=== PATIENT | male | born 1985 | race Caucasian/White ===

== ENCOUNTER 2021-01-23 15:04 | Emergency (ER) | payer BC, SELFPAY ==
--- NOTE | ~2021-01-23 | XR_ITS ---
EXAMINATION: XR finger 1st LT min 2V EXAM DATE: 01/23/2021 15:38 INDICATION: Smashed finger, subsequent pain. Initial encounter. TECHNIQUE: Left 1st finger frontal, lateral and oblique projections obtained and reviewed. There i s no prior study for comparison. FINDINGS: There is tiny acute fracture at the tuft of the left 1st phalanx, overlying laceration shireen cating it could be open posttraumatic fracture. Clinical correlation. No other suspicious findings. IMPRESSION: Left 1st tuft fracture with overlying laceration, possibly open. Reviewed, dictated and finalized at location A.
[2021-01-23 15:10] VITALS: BP 161/92; PULSE 85; RESP 16; TEMP 37.1; O2SAT 98
[2021-01-23] MEDS: LIDOCAINE HCL 1% LOCAL INJ 20 ML VIAL 5 ML INFILTRATE (15:40)
[2021-01-23] MEDS: TETANUS,DIPHTHERIA,AC PERTUSSIS ADULT 0.5 ML (ADACEL) IM (15:50)
--- NOTE | 2021-01-23 16:23 | ED.GENADULT ---
HPI - General Adult General Chief complaint: Wound/Laceration Stated complaint: cut finger Source: patient Mode of arrival: ambulatory Limitations: no limitations History of Present Illness HPI narrative: Lindy is a 35M with a PMH of depression that presented to the ED with a smashed left thumb. He was helping his dad move a lawnmower when it fell on his distal left thumb. He had no other injuries. Related Data Home Medications Medication Instructions Recorded Confirmed citalopram 10 mg PO DAILY 01/23/21 01/23/21 Allergies Allergy/AdvReac Type Severity Reaction Status Date / Time No Known Allergies Allergy Verified 01/23/21 15:20 Review of Systems Constitutional: Constitutional: Reports no additional constitutional complaints Eyes: Eyes: Reports no additional eye complaints ENT: Reports system reviewed and no additional complaints, except as documented Cardiovascular: Cardiovascular: Reports no additional cardiovascular complaints Respiratory: Respiratory: Reports no additional respiratory complaints Gastrointestinal: Gastrointestinal: Reports no additional gastrointestinal complaints Genitourinary: Genitourinary: Reports no additional male genitourinary complaints Musculoskeletal: Musculoskeletal: Reports as per HPI Integumentary/Breasts: Skin/Breast: Reports as per HPI Neurologic: Reports system reviewed and no additional complaints, except as documented Psychiatric: Psychiatric: Reports no additional psychiatric complaints Endocrine: Endocrine: Reports no additional endocrine complaints Hematologic/Lymphatic: Hematologic/Lymphatic: Reports no additional hematologic/lymphatic complaints Allergic/Immunologic: Allergic/Immunologic: Reports no additional allergic/immunologic complaints Exam Const: General: no acute distress and alert Orientation/consciousness: patient oriented x3 Limitations: No altered mental status HENMT: Head: normal to inspection Other: atraumatic Eyes: Conjunctivae: conjunctivae normal Pupils: Equal, round and reactive pupils present Neck: Neck: normal visual inspection Chest: Chest palpation & inspection: normal inspection of the chest Resp: Effort & Inspection: normal respiratory effort, not labored and not tachypneic Cardio: Rate: regular rate Skin: General skin exam: normal color Rashes: no rashes Neuro: General: patient oriented x3 and moves all extremities Extrem: Other: Left thumb has a 1cm laceration into the subcutaneous tissue with the distal nail crushed. No bone exposed.The proximal nail is intact. Psych: Appearance: grossly normal Mental Status: mental status grossly normal Course Course Emergency Course: EXAMINATION: XR finger 1st LT min 2V EXAM DATE: 01/23/2021 15:38 INDICATION: Smashed finger, subsequent pain. Initial encounter. TECHNIQUE: Left 1st finger frontal, lateral and oblique projections obtained and reviewed. There is no prior study for comparison. FINDINGS: There is tiny acute fracture at the tuft of the left 1st phalanx, overlying laceration indicating it could be open posttraumatic fracture. Clinical correlation. No other suspicious findings. IMPRESSION: Left 1st tuft fracture with overlying laceration, possibly open. After the laceration was sutured it was dressed and placed in slight extension with a finger splint. Vital Signs Vital signs: Vital Signs Temperature 98.8 F 01/23/21 15:10 Pulse Rate 85 01/23/21 15:10 Respiratory Rate 16 01/23/21 15:10 Blood Pressure 161/92 H 01/23/21 15:10 Pulse Oximetry 98 01/23/21 15:10 Temperature 98.8 F 01/23/21 15:10 Pulse Rate 82 01/23/21 16:50 Respiratory Rate 16 01/23/21 16:50 Blood Pressure 136/85 01/23/21 16:50 Pulse Oximetry 100 01/23/21 16:50 Procedures Laceration Laceration 1: Site: other (Left 1st digit) Side (If applicable): left Size (cm): 1 Description: linear Depth: simple, single layer L
[2021-01-23 16:50] VITALS: BP 136/85; PULSE 82; RESP 16; O2SAT 100
--- NOTE | 2021-01-23 17:14 | PC.NURSE ---
splint placed on left thumb
== END 2021-01-23 17:00 | disposition home or self-care (01) ==
PROVIDERS: Emergency Provider Family Medicine; PCP Internal Medicine
DX: S61.012A Laceration without foreign body of left thumb without damage to nail, initial encounter (principal); S62.522A Displaced fracture of distal phalanx of left thumb, initial encounter for closed fracture; W22.8XXA Striking against or struck by other objects, initial encounter
CPT/HCPCS: 12041; 73140; 90471; 90715; 99283

== ENCOUNTER 2022-10-02 10:00 | Outpatient (CLI) | payer OTHER, SELFPAY ==
--- NOTE | ~2022-10-02 | MR_ITS ---
MRI of the left shoulder Technique: Axial proton-density fat-sat images, coronal proton density fat-sat and T2 fat-sat images, and sagittal T1-weighted and T2 fat-sat images were acquired. Exam mildly degraded by motion artifac t. Clinical History: Pain Findings: There is minimal AC joint degenerative change. Coracoclavicular, coracoacromial, and coraco humeral ligaments are intact. Supraspinatus and infraspinatus tendons are intact, without partial or full-thickness tear. Subscapul chad tendon is intact. Tendon of the long head of the biceps is intact. No definite labral tear is seen. Inferior glenohumeral ligament is intact. No degenerative change or effusion of the glenohumeral join t identified. No fluid distention of the subacromial/subdeltoid bursa. No muscle atrophy or edema. Impression: No significant abnormality identified. Reviewed, dictated and finalized at [facility]. Impression: No significant abnormality identified.
--- NOTE | ~2022-10-02 | MR_ITS ---
MRI of the cervical spine Clinical History: Cervical radiculopathy Technique: Axial T2-weighted and gradient images, and sagittal T1-weighted, T2-weighted, and STIR nela ges were acquired. Findings: There is mild reversal of the normal cervical lordosis. No fracture or subluxation evident. No suspicious bone marrow signal abnormality seen. At C2-C3, there is no disc bulge or herniation. No spinal canal stenosis, cord compression, or neural foraminal narrowing. At C3-C4, there is mild disc osteophyte complex, which results in probable minimal canal stenosis but no jose francisco cord compression. Bilateral neural foramina are probably mildly narrowed. At C4-C5, there is minimal disc osteophyte complex. No spinal canal stenosis, cord compression, or ne ural foraminal narrowing. At C5-C6, there is minimal disc ossify complex, with probable minimal flattening of the ventral cord. There is preservation of the bilateral neural foramina. At C6-C7, there is disc osteophyte complex, with probable superimposed disc protrusion at the left pa racentral to left foraminal region. There is mild flattening of the ventral cord, especially in the l eft side. There is severe left neural foraminal narrowing. Right neural foramen preserved. No abnormal signal evident in the spinal cord. Paravertebral soft tissues are unremarkable. Impression: Disc osteophyte complex with superimposed disc protrusion at the left paracentral to left foraminal r egion at C6-C7, resulting in severe left neural foraminal compromise at this level. There is mild fla ttening of the ventral cord at this level, especially on the left side. Additional mild degenerative spondylitic changes, as above. Mild reversal of the normal cervical lordosis. Reviewed, dictated and finalized at [facility]. Impression: Disc osteophyte complex with superimposed disc protrusion at the left paracentr al to left foraminal region at C6-C7, resulting in severe left neural foraminal compromise at this level. There is mild flattening of the ventral cord at this level, especially on the left side. Additional mild degenerative spondylitic changes, as above. Mild reversal of the normal cervical lordosis.
== END 2022-10-02 10:01 | disposition home or self-care (01) ==
LOC: CHSIMG 10:02
PROVIDERS: PCP Internal Medicine; Visit Provider Internal Medicine
DX: M25.512 Pain in left shoulder (principal); M54.12 Radiculopathy, cervical region; M53.82 Other specified dorsopathies, cervical region; M25.78 Osteophyte, vertebrae
CPT/HCPCS: 72141; 73221

== ENCOUNTER 2022-10-17 12:41 | Emergency (ER) | payer BC, SELFPAY ==
[2022-10-17 12:41] VITALS: BP 134/109; PULSE 84; RESP 18; TEMP 37; O2SAT 98
--- NOTE | 2022-10-17 13:08 | ED.GENADULT ---
HPI - General Adult General Chief complaint: Psychiatric Symptoms Stated complaint: depression Time Seen by Provider: 10/17/22 12:59 History of Present Illness HPI narrative: The patient is a 37-year-old male with history of anxiety, and cervical disc disease causing neck pain, he is due to see an orthopedic surgeon for his neck pain but has not had the chance to do so yet. He is currently going through a bad divorce with his . He made a statement that he was going to hurt himself and cut himself in front of his . The police were notified. The patient left the house and went to the [place]. He had a pocket knife with him. It was not intentional per his report. He was placed in handcuffs by the lead developer. They found the knife on his body. They brought him here for further evaluation. The patient denies suicidal ideation. He states he was just angry and made comments in anger. He has no plans of hurting himself. No homicidal ideation. No hallucinations or delusions. Only somatic complaint is chronic neck pain. No prior history of behavioral health concerns. No prior hospitalizations for suicidal ideation. He smokes cigarettes. He drinks alcohol very occasionally. Has used cocaine in the past. No other complaints. Related Data Home Medications Medication Instructions Recorded Confirmed citalopram 10 mg tablet 10 mg PO DAILY 01/23/21 10/17/22 montelukast 10 mg tablet 10 mg PO DAILY 10/17/22 10/17/22 Allergies Allergy/AdvReac Type Severity Reaction Status Date / Time amoxicillin Allergy Unknown Verified 10/17/22 13:00 Review of Systems Review of Systems: All systems reviewed & are unremarkable except as noted in HPI and below Constitutional: Constitutional: Reports as per HPI, Reports no additional constitutional complaints, Denies chills, Denies excessive sweating, Denies fatigue, Denies fever(s), Denies headache(s) and Denies weakness Eyes: Eyes: Reports as per HPI, Reports no additional eye complaints, Denies change in vision and Denies photophobia ENT: Reports system reviewed and no additional complaints, except as documented, Reports as per HPI, Denies dysphagia, Denies vertigo, Denies dizziness, Denies headache(s), Denies lip swelling, Denies nasal congestion, Denies sore throat, Denies throat swelling and Denies tongue swelling Cardiovascular: Cardiovascular: Reports as per HPI, Reports no additional cardiovascular complaints, Denies chest pain, Denies syncope, Denies rapid heart rate and Denies dyspnea Respiratory: Respiratory: Reports as per HPI, Reports no additional respiratory complaints, Denies chest congestion, Denies cough, Denies dyspnea and Denies wheezing Gastrointestinal: Gastrointestinal: Reports as per HPI, Reports no additional gastrointestinal complaints, Denies abdominal pain, Denies constipation, Denies dysphagia, Denies diarrhea, Denies nausea and Denies vomiting Genitourinary: Genitourinary: Reports as per HPI, Denies hematuria, Denies oliguria, Denies dysuria, Denies urinary frequency, Denies urinary incontinence and Denies urinary urgency Musculoskeletal: Musculoskeletal: Reports no additional musculoskeletal complaints, Denies back pain, Denies myalgias (does have chronic neck pain), Denies arthralgias, Denies joint swelling and Denies numbness Integumentary/Breasts: Skin/Breast: Reports system reviewed and no additional complaints, except as docu, Denies pruritus, Denies erythema, Denies rash and Denies skin ulcer Neurologic: Reports system reviewed and no additional complaints, except as documented, Reports as per HPI, Denies confusion, Denies vertigo, Denies dizziness, Denies syncope, Denies headache(s), Denies focal weakness, Denies numbness and Denies weakness Psychiatric: Psychiatric: Reports as per HPI, Denies anxiety, Denies confusion, Denies depression, Denies homicidal ideation and Denies suicidal ideation Endocrine: Endocrine: Reports no additional endocrine complaints, Denies exc
[2022-10-17 13:27] LABS: Basophils Absolute Auto 0.05 K/mm3 (0.00-0.10); Basophils Percent Auto 0.6 % (0.0-1.0); Eosinophils Absolute Auto 0.06 K/mm3 (0.02-0.50); Eosinophils Percent Auto 0.7 % (1.0-6.0); Hematocrit 44.3 % (40.0-54.0); Hemoglobin 15.3 g/dL (14.0-18.0); Immature Granulocyte Absolute 0.03 K/mm3 (0.00-0.00); Immature Granulocyte Percent A 0.3 % (0.0-0.0); Lymphocytes Absolute Auto 1.68 K/mm3 (1.10-4.50); Lymphocytes Percent Auto 19.2 % (18.0-42.0); Mean Corpuscular HGB Conc 34.5 g/dL (32.0-36.0); Mean Corpuscular Hemoglobin 30.2 pg (27.0-31.0); Mean Corpuscular Volume 87.4 fL (78.0-102.0); Mean Platelet Volume 8.7 fl (8.7-11.0); Monocytes Absolute Auto 0.66 K/mm3 (0.10-0.90); Monocytes Percent Auto 7.5 % (2.0-11.0); Neutrophils Absolute Auto 6.3 K/mm3 (1.7-7.2); Neutrophils Percent Auto 71.7 % (50.0-70.0); Platelet Count Result 282 K/mm3 (150-420); Red Blood Count 5.07 M/mm3 (4.70-6.10); Red Cell Distribution Width 12.7 % (11.6-14.4); White Blood Count 8.8 K/mm3 (4.8-10.8)
[2022-10-17 13:28] LABS: Appearance Urine Clear (Clear); Bilirubin Urine Negative (Negative); Blood Urine Negative (Negative); Color Urine Yellow (Yellow); Glucose Urine UA Negative (Negative); Ketones Urine Negative (Negative); Leukocyte Esterase Ur Negative LEU/UL (Negative); Nitrate Urine Negative (Negative); Protein Urine Negative (Negative); Specific Grav Ur >= 1.030 (1.010-1.020); Urobilinogen Urine 0.2 mg/dL (0.2-1.0); pH Urine 5.5 (5.0-8.0)
[2022-10-17 13:34] LABS: Amphetamine Screen Urine Negative (Negative); Barbiturate Screen Urine Negative (Negative); Benzodiazepines Screen Urine Negative (Negative); Cannabinoid Screen Urine Negative (Negative); Cocaine Screen Urine Negative (Negative); Methadone Screen Urine Negative (Negative); Opiate Screen Urine Negative (Negative); Phencyclidine Screen Urine Negative (Negative)
[2022-10-17 13:39] LABS: Add Urine Microscopic? NO
[2022-10-17 13:53] LABS: Acetaminophen < 2 ug/mL (10-30); Alanine Aminotransferase 37 U/L (16-63); Albumin Level 4.4 g/dL (3.4-5.0); Alkaline Phosphatase 55 U/L (46-116); Anion Gap 8 mmol/L (8-16); Aspartate Amino Transferase 16 U/L (15-37); Bilirubin,Total 0.5 mg/dL (0.00-1.00); Blood Urea Nitrogen 16 mg/dL (7-18); Calcium 9.1 mg/dL (8.5-10.1); Carbon Dioxide 31 mmol/L (21-32); Chloride 103 mmol/L (98-108); Estimated CRCL calculation 100 ml/min; Estimated Glomerular Filt Rate > 60; Ethanol < 3 mg/dL (0-6); Glucose 100 mg/dL (70-99); Magnesium 2.1 mg/dL (1.8-2.4); Osmolality Calculated 295 mOsm/kg (285-295); Potassium 4.2 mmol/L (3.5-5.1); Salicylate 1.1 mg/dL (2.8-20.0); Sodium 142 mmol/L (136-145); Total Protein 7.9 g/dL (6.4-8.2)
[2022-10-17 13:54] LABS: Thyroid Stimulating Hormone Reflex 1.25 u/IU/mL (0.36-3.74)
[2022-10-17 14:04] LABS: SARS-CoV-2 RNA PCR Negative (Negative)
[2022-10-17 14:18] VITALS: BP 140/96; PULSE 81; RESP 16; O2SAT 100
--- NOTE | 2022-10-17 14:18 | PC.NURSE ---
Pt sitting in room c family at side, POC discussed for counseling and pt informed of wait time for [facility] counselor about 1-2 hrs. for their arrival to talk c pt. Pt remains calm, cooperative, call rodriguez at side.
--- NOTE | 2022-10-17 15:22 | PC.NURSE ---
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 Awaiting [facility] counselor, call jennifer at side.
--- NOTE | 2022-10-17 16:19 | PC.NURSE ---
Counseling setup c Humza Girard on O/P basis. POC discussed c pt and he will go home c mom. VSS.
[2022-10-17 16:32] VITALS: BP 138/88; PULSE 87; RESP 18; TEMP 36.6; O2SAT 96
== END 2022-10-17 16:36 | disposition home or self-care (01) ==
PROVIDERS: Emergency Provider Emergency Medicine; PCP Internal Medicine
DX: F32.A Depression, unspecified (principal); F41.9 Anxiety disorder, unspecified; F17.210 Nicotine dependence, cigarettes, uncomplicated; Z20.822 Contact with and (suspected) exposure to COVID-19; Z79.899 Other long term (current) drug therapy
CPT/HCPCS: 36415; 80053; 80307; 81003; 83735; 84443; 85025; 99284; U0003; U0005

== ENCOUNTER 2023-05-09 19:50 | Emergency (ER) | payer BC, SELFPAY ==
[2023-05-09 19:50] VITALS: BP 152/90; PULSE 92; RESP 14; TEMP 36.9; O2SAT 100
--- NOTE | 2023-05-09 20:08 | ED.DENTAL ---
HPI - Dental/Oral General Chief complaint: Dental/Oral Stated complaint: tooth pain Time Seen by Provider: 05/09/23 20:01 Source: patient Mode of arrival: ambulatory Limitations: no limitations History of Present Illness HPI Narrative: this is a 37-year-old male with some chronic tooth decay having dental pain has already seen a dentist and currently on antibiotics but over the last couple of days has increased pain level has tried [id number] medication with minimal relief there is no fever chills no shortness of breath. Teeth map: 1. Tender with surrounding gum inflammation dental pain with palpation Onset (ago): week(s) Severity: moderate Severity scale (1-10): 8 Relieving factors: nothing Context: history of dental caries Associated symptoms: gum swelling Related Data Home Medications Medication Instructions Recorded Confirmed citalopram 10 mg tablet 10 mg PO DAILY 01/23/21 10/17/22 montelukast 10 mg tablet 10 mg PO DAILY 10/17/22 10/17/22 Allergies Allergy/AdvReac Type Severity Reaction Status Date / Time amoxicillin Allergy Mild Unknown Verified 05/09/23 20:02 Review of Systems Review of Systems: All systems reviewed & are unremarkable except as noted in HPI and below PMFSH Past Medical History Medical History Anxiety Family History Family History Father Depression Anxiety Mother Anxiety Depression Social History Social History Smoking status: Current every day smoker Alcohol intake: current Substance use: never Substance use type: former substance user Exam Const: General: healthy appearing Nutritional Appearance: well nourished Orientation/consciousness: patient oriented x3 Limitations: no limitations HENMT: Head: normal to inspection Eyes: Conjunctivae: conjunctivae normal EOM: EOMs intact bilaterally Neck: Neck: normal visual inspection Chest: Chest palpation & inspection: normal inspection of the chest Resp: Effort & Inspection: normal respiratory effort Auscultation: clear to auscultation bilaterally GI: Auscultation: normal bowel sounds Skin: General skin exam: normal color Rashes: no rashes Neuro: General: patient oriented x3 Extrem: General: normal to inspection Course Course Emergency Course: Patient received a dose of IM Toradol 60mg and received a note for work advised to continue his current antibiotics and follow with dentist. Vital Signs Vital signs: Vital Signs Temperature 36.9 C 05/09/23 19:50 Pulse Rate 92 05/09/23 19:50 Respiratory Rate 14 05/09/23 19:50 Blood Pressure 152/90 H 05/09/23 19:50 Pulse Oximetry 100 05/09/23 19:50 Oxygen Delivery Room Air 05/09/23 19:50 Temperature 36.9 C 05/09/23 19:50 Pulse Rate 92 05/09/23 19:50 Respiratory Rate 14 05/09/23 19:50 Blood Pressure 152/90 H 05/09/23 19:50 Pulse Oximetry 100 05/09/23 19:50 Oxygen Delivery Room Air 05/09/23 19:50 Critical Care Time Critical Care Time Critical Care Time: No Discharge Plan Discharge Clinical Impression: Toothache, Dental abscess Patient Disposition: Home, Self-Care Condition: Stable Instructions: Antibiotic Form, Dental Abscess (ED), Toothache (ED) Additional Instructions: Advised to continue antibiotics as prescribed, take medicine for toothache and follow with dentist as soon as possible for further evaluation treatment. Prescriptions: New tramadol 50 mg tablet 50 mg PO Q6H PRN (Reason: pain) Qty: 20 0RF No Action citalopram 10 mg tablet 10 mg PO DAILY montelukast 10 mg tablet 10 mg PO DAILY Follow-up/Referrals: Seth Gupta MD [Primary Care Provider] - Stand Alone Forms: Work/School Release IP Time of Disposition: 20:12
[2023-05-09] MEDS: KETOROLAC (*BKC) 60 MG/2 ML VIAL IM (20:15)
== END 2023-05-09 20:23 | disposition home or self-care (01) ==
PROVIDERS: Emergency Provider Emergency Medicine; PCP Internal Medicine
DX: K04.7 Periapical abscess without sinus (principal); K08.89 Other specified disorders of teeth and supporting structures; F17.200 Nicotine dependence, unspecified, uncomplicated
CPT/HCPCS: 96372; 99283; J1885

== ENCOUNTER 2023-05-11 22:37 | Emergency (ER) | payer BC, SELFPAY ==
[2023-05-11 22:49] VITALS: BP 123/88; PULSE 95; RESP 20; TEMP 36.6; O2SAT 99
--- NOTE | 2023-05-11 22:49 | ED_ITS ---
HPI - General Adult General Chief complaint: Dental/Oral Stated complaint: toothache History of Present Illness HPI narrative: 37yo man with right upper molar severe dental pain. On Clindamycin 150 mg TID for two days and tramadol without relief. No fever. Related Data Home Medications Medication Instructions Recorded Confirmed citalopram 10 mg tablet 10 mg PO DAILY 01/23/21 05/11/23 montelukast 10 mg tablet 10 mg PO DAILY 10/17/22 05/11/23 Allergies Allergy/AdvReac Type Severity Reaction Status Date / Time amoxicillin Allergy Mild Unknown Verified 05/09/23 20:02 Review of Systems Review of Systems: All systems reviewed & are unremarkable except as noted in HPI and below Constitutional: Constitutional: Denies fever(s) ENT: Denies dysphagia Cardiovascular: Cardiovascular: Denies chest pain Respiratory: Respiratory: Denies dyspnea [facility] Past Medical History Medical History Anxiety Family History Family History Father Depression Anxiety Mother Anxiety Depression Social History Social History Smoking status: Current every day smoker Alcohol intake: current Substance use: never Substance use type: former substance user Exam Const: General: healthy appearing and no acute distress Nutritional Appearance: well nourished HENMT: Other: severe dental caries, braces in place, no drainable abcess Eyes: Conjunctivae: conjunctivae normal Medical Decision Making [facility] Narrative Medical decision making narrative: odontalgia DDx dental caries, periapical abscess, no gingival abscess Discharge Plan Discharge Clinical Impression: Infected tooth Patient Disposition: Home, Self-Care Condition: Improved Instructions: Antibiotic Form Additional Instructions: Take Clindamycin 300 mg three times per day for the full prescribed course. You can double up your current 150 mg tablets until you get the new prescription filled. Take Dexamethasone twice a day to control the pain and add Ketorolac every 6 hours as needed. You can add Acetaminophen to this. Gargle with salt water and hold an ice pack on the face for additional relief. Sleep upright in a recliner until your pain resolves (laying down flat causes the inflamed area to swell and hurt more). Prescriptions: New ketorolac 10 mg tablet 10 mg PO Q6H PRN (Reason: moderate to severe acute pain) 5 Days Qty: 15 0RF dexamethasone 4 mg tablet 4 mg PO BID Qty: 10 0RF clindamycin HCl 300 mg capsule 300 mg PO TID Qty: 30 0RF No Action citalopram 10 mg tablet 10 mg PO DAILY montelukast 10 mg tablet 10 mg PO DAILY tramadol 50 mg tablet 50 mg PO Q6H PRN (Reason: pain) Qty: 20 0RF Follow-up/Referrals: Seth Gupta MD [Primary Care Provider] - Stand Alone Forms: Work/School Release IP Time of Disposition: 22:53
[2023-05-11] MEDS: cefTRIAXone 1 GM, LIDOCAINE HCL 1% LOCAL INJ 2.1 ML IM (23:04)
[2023-05-11] MEDS: KETOROLAC (*BKC) 60 MG/2 ML VIAL IM (23:04)
[2023-05-11 23:21] VITALS: BP 132/87; PULSE 82; RESP 18; O2SAT 97
== END 2023-05-11 23:26 | disposition home or self-care (01) ==
PROVIDERS: Emergency Provider Emergency Medicine; PCP Internal Medicine
DX: K04.7 Periapical abscess without sinus (principal); F17.200 Nicotine dependence, unspecified, uncomplicated; Z79.899 Other long term (current) drug therapy
CPT/HCPCS: 96372; 99284; J0696; J1100; J1885

== ENCOUNTER 2023-09-22 18:47 | Emergency (ER) | payer BC, SELFPAY ==
--- NOTE | ~2023-09-22 | XR_ITS ---
EXAMINATION: XR chest 1V portable Exam Date/Time: 09/22/2023 19:10 CDT HISTORY: COUGH Comparison: None. RESULT: Lines, tubes, and devices: None. Lungs and pleura: Clear. Cardiomediastinal silhouette: Normal. Other: No acute osseous or upper abdominal finding. IMPRESSION: No acute cardiopulmonary process. Reviewed, dictated and finalized at location K.
[2023-09-22 18:50] VITALS: BP 157/94; PULSE 113; TEMP 36.8; O2SAT 96
--- NOTE | 2023-09-22 18:57 | ED.BACK ---
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 PATIENT ALSO COMPLAINING OF COUGHING FOR THE LAST 2 WEEKS STARTED COMMON COLD, SUBSEQUENTLY HAVE PERSISTENT COUGHING. HE DENIES ANY FEVER, CHILLS, NAUSEA, VOMITING, SHORTNESS OF BREATH, RADIATION OF THE LOWER BACK PAIN. THE PAIN IS SHARP, WORSE WITH CERTAIN MOVEMENT AND POSITION, BETTER REMAINING STILL. Related Data Home Medications Medication Instructions Recorded Confirmed citalopram 10 mg tablet 10 mg PO DAILY 01/23/21 09/22/23 montelukast 10 mg tablet 10 mg PO DAILY 10/17/22 09/22/23 Allergies Allergy/AdvReac Type Severity Reaction Status Date / Time amoxicillin Allergy Mild Swelling Verified 09/22/23 18:52 Review of Systems Review of Systems: All systems reviewed & are unremarkable except as noted in HPI and below PMFSH Past Medical History Medical History Anxiety Family History Family History Father Depression Anxiety Mother Anxiety Depression Social History Social History Smoking status: Current every day smoker Alcohol intake: current Substance use: never Substance use type: former substance user Exam Narrative: GENERAL APPEARANCE: WELL-DEVELOPED, WELL-NOURISHED SKIN: NORMAL COLOR HEAD: NORMOCEPHALIC, NONTRAUMATIC EYES: CLEAR CONJUNCTIVA ENT: OROPHARYNX NORMAL, EARS NORMAL, NOSE NORMAL NECK: SUPPLE, NONTENDER CHEST AND RESPIRATORY: AIRWAY PATENT, NO RESPIRATORY DISTRESS, NO ACCESSORY MUSCLE USE , SCATTERED RHONCHI HEART: REGULAR RATE/RHYTHM ABDOMEN: SOFT, NONTENDER, NO ORGANOMEGALY, QUIET BOWEL SOUNDS VASCULAR: NORMAL PERIPHERAL PULSES, NORMAL CAPILLARY REFILL. MUSCULOSKELETAL: NORMAL RANGE OF MOTION, NONTENDER BACK NEUROLOGIC: ALERT AND ORIENTED ?3, DRY ROASTER IS NORMAL TESTED, NO GROSS MOTOR DEFICIT Course Vital Signs Vital signs: Vital Signs Temperature 36.8 C 09/22/23 18:50 Pulse Rate 113 H 09/22/23 18:50 Blood Pressure 157/94 H 09/22/23 18:50 Pulse Oximetry 96 09/22/23 18:50 Oxygen Delivery Room Air 09/22/23 18:50 Temperature 36.8 C 09/22/23 18:50 Pulse Rate 113 H 09/22/23 18:50 Blood Pressure 157/94 H 09/22/23 18:50 Pulse Oximetry 96 09/22/23 18:50 Oxygen Delivery Room Air 09/22/23 18:50 Critical Care Time Critical Care Time Critical Care Time: No Discharge Plan Discharge Clinical Impression: Strain of lumbar region, Bronchitis Patient Disposition: Home, Self-Care Condition: Stable Instructions: Antibiotic Form, Back Pain (ED), Lower Back Exercises (ED) Additional Instructions: RETURN IF SYMPTOMS ARE WORSENING , CALL YOUR FAMILY PHYSICIAN FOR APPOINTMENT, TAKE TYLENOL NEEDED FOR ACHES AND PAIN, CONTINUE HOME MEDICATIONS. Prescriptions: New doxycycline hyclate 100 mg capsule 100 mg PO BID Qty: 20 0RF prednisone 20 mg tablet 40 mg PO DAILY 5 Days Qty: 10 0RF benzonatate 200 mg capsule 200 mg PO TID Qty: 21 0RF naproxen [Naprosyn] 500 mg tablet 500 mg PO BID PRN (Reason: pain) Qty: 14 0RF cyclobenzaprine 10 mg tablet 10 mg PO TID PRN (Reason: muscle spasm) Qty: 20 0RF No Actio
== END 2023-09-22 19:34 | disposition home or self-care (01) ==
LOC: CHSED 19:37
PROVIDERS: Emergency Provider Emergency Medicine; PCP Internal Medicine
DX: S39.012A Strain of muscle, fascia and tendon of lower back, initial encounter (principal); J40 Bronchitis, not specified as acute or chronic; F17.200 Nicotine dependence, unspecified, uncomplicated; Z79.899 Other long term (current) drug therapy; X58.XXXA Exposure to other specified factors, initial encounter
CPT/HCPCS: 71045; 99283

== ENCOUNTER 2024-02-12 01:11 | Emergency (ER) | payer BC, SELFPAY ==
--- NOTE | ~2024-02-12 | CT_ITS ---
Non-contrast Head CT History: Headache Technique: Axial non-contrast imaging of the brain was performed. Dose reduction technique was used on this scan by utilizing automated exposure control and iterative reconstruction technique. The dose -length product (DLP) was 681.00 mGy-cm. Findings: There is no evidence of intracranial hemorrhage, mass lesion, or acute infarct. Brain par enchyma appears normal. The ventricles and subarachnoid spaces are normal in size. The calvarium ap pears normal. The visualized paranasal sinuses and mastoid air cells are clear. Impression: No significant abnormality seen. Reviewed, dictated and finalized at location . Impression: No significant abnormality seen.
[2024-02-12 01:17] VITALS: BP 137/100; PULSE 87; RESP 20; TEMP 36.4; O2SAT 97
--- NOTE | 2024-02-12 01:19 | ED.HA ---
HPI - Headache General Chief Complaint: Headache Stated Complaint: covid +, sinus h/a Time Seen by Provider: 02/12/24 01:19 Source: patient Mode of arrival: ambulatory Limitations: no limitations History of Present Illness HPI Narrative: 38 year old male presents to the Emergency Department complaining of headache. Onset tonight. Patient has no history of headaches. Was diagnosed with covid 5 days ago. Denies visual changes, runny nose, cough, congestion, nausea, vomiting, diarrhea, fever, stiff neck or other problems MD elicited complaint: headache Pertinent past history: other (recent Covid diagnosis) Onset (ago): hour(s) Location: generalized Severity: moderate Quality & Timing: throbbing Exacerbating factors: none Relieving factors: nothing Associated symptoms: none Treatments prior to arrival: none Related Data Home Medications Medication Instructions Recorded Confirmed citalopram 10 mg tablet 10 mg PO DAILY 01/23/21 02/12/24 montelukast 10 mg tablet 10 mg PO DAILY 10/17/22 02/12/24 aripiprazole 2 mg tablet 2 mg PO DAILY 02/12/24 02/12/24 Allergies Allergy/AdvReac Type Severity Reaction Status Date / Time amoxicillin Allergy Mild Swelling Verified 09/22/23 18:52 Review of Systems Review of Systems: All systems reviewed & are unremarkable except as noted in HPI and below Constitutional: Constitutional: Reports as per HPI, Denies chills and Denies fever(s) Eyes: Eyes: Reports as per HPI, Denies change in vision and Reports photophobia ENT: Reports system reviewed and no additional complaints, except as documented, Denies dizziness, Denies nasal congestion and Denies sore throat Cardiovascular: Cardiovascular: Reports as per HPI and Denies chest pain Respiratory: Respiratory: Reports as per HPI, Denies cough and Denies dyspnea Gastrointestinal: Gastrointestinal: Reports as per HPI, Denies abdominal pain, Denies diarrhea, Denies nausea and Denies vomiting Genitourinary: Genitourinary: Reports no additional male genitourinary complaints Musculoskeletal: Musculoskeletal: Reports no additional musculoskeletal complaints and Denies myalgias Integumentary/Breasts: Skin/Breast: Reports system reviewed and no additional complaints, except as docu Neurologic: Reports system reviewed and no additional complaints, except as documented, Denies dizziness, Denies syncope, Reports headache(s), Denies focal weakness, Denies numbness and Denies weakness PMFSH Past Medical History Medical History Anxiety Family History Family History Father Depression Anxiety Mother Anxiety Depression Social History Social History Smoking status: Current every day smoker Alcohol intake: current Substance use: never Substance use type: former substance user Exam Const: General: healthy appearing Nutritional Appearance: well nourished Orientation/consciousness: patient oriented x3 Limitations: no limitations HENMT: Head: normal to inspection Ears: external ears normal Face/Nose/Sinus: Normal external nose present Face and sinus: normal facial exam Mouth: Yes Normal oral and palatal mucosa present Throat: posterior oropharynx normal Eyes: Conjunctivae: conjunctivae normal Pupils: Equal, round and reactive pupils present EOM: EOMs intact bilaterally Direct Ophthalmoscopy: no photophobia Neck: Neck: normal visual inspection and no meningeal signs Chest: Chest palpation & inspection: normal inspection of the chest Resp: Effort & Inspection: normal respiratory effort Auscultation: clear to auscultation bilaterally Cardio: Rate: regular rate Rhythm: regular rhythm GI: Inspection: non-distended GI Palp: Yes Soft to palpation and No Tenderness to palpation present (GI) Back/Spine/Pelvis: Back: no CVA tenderness Skin: General skin exam: n
[2024-02-12] MEDS: KETOROLAC (*BKC) 60 MG/2 ML VIAL IM (01:51)
[2024-02-12 02:40] VITALS: BP 126/86; PULSE 85; RESP 20; TEMP 36.6; O2SAT 98
== END 2024-02-12 02:40 | disposition home or self-care (01) ==
PROVIDERS: Emergency Provider Emergency Medicine; PCP Internal Medicine
DX: R51.9 Headache, unspecified (principal); F17.200 Nicotine dependence, unspecified, uncomplicated; Z79.899 Other long term (current) drug therapy
CPT/HCPCS: 70450; 96372; 99284; J1885

== ENCOUNTER 2024-07-31 16:25 | Emergency (ER) | payer BC, SELFPAY ==
[2024-07-31 16:26] VITALS: BP 134/92; PULSE 92; RESP 18; TEMP 36.9; O2SAT 96
--- NOTE | 2024-07-31 16:43 | ED.URI ---
HPI - URI/Sore Throat General Chief Complaint: Upper Respiratory Infection Stated Complaint: congestion Time Seen by Provider: 07/31/24 16:34 Source: patient Mode of arrival: ambulatory Limitations: no limitations History of Present Illness HPI Narrative: 39 YEARS OLD WHITE MALE CAME TO THE ED BY PRIVATE CAR COMPLAINING OF SORE THROAT, COUGHING, SNEEZING FOR THE LAST 48 HOURS. PATIENT HAD IBUPROFEN 4 HOURS PRIOR TO ARRIVAL TO THE EMERGENCY ROOM. PATIENT IS TELLING ME THAT HE HAD COLD SYMPTOMS 2-3 WEEKS AGO, 0 RESOLVED AND WAS DOING OKAY 5 DAYS PRIOR TO THE BEGINNING OF THE NEW SYMPTOMS. PATIENT IS HEALTHY OTHERWISE. Related Data Home Medications ?Medication ?Instructions ?Recorded ?Confirmed ?Last Taken ?Type citalopram 10 mg tablet 10 mg PO DAILY 01/23/21 02/12/24 09/22/23 History montelukast 10 mg tablet 10 mg PO DAILY 10/17/22 02/12/24 09/22/23 History aripiprazole 2 mg tablet 2 mg PO DAILY 02/12/24 02/12/24 Unknown History Allergies Allergy/AdvReac Type Severity Reaction Status Date / Time amoxicillin Allergy Mild Swelling Verified 07/31/24 16:43 Review of Systems Review of Systems: All systems reviewed & are unremarkable except as noted in HPI and below PMFSH Past Medical History Medical History Anxiety Family History Family History Father Depression Anxiety Mother Anxiety Depression Social History Social History Smoking status: Current every day smoker Alcohol intake: current Substance use: never Substance use type: former substance user Exam Narrative: GENERAL APPEARANCE: WELL-DEVELOPED, WELL-NOURISHED SKIN: NORMAL COLOR HEAD: NORMOCEPHALIC, NONTRAUMATIC EYES: CLEAR CONJUNCTIVA ENT: FABIAN PHARYNGEAL ERYTHEMA NECK: SUPPLE, NONTENDER CHEST AND RESPIRATORY: AIRWAY PATENT, NO RESPIRATORY DISTRESS, NO ACCESSORY MUSCLE USE NEUROLOGIC: ALERT AND ORIENTED ?3, FURNITURE INSPECTOR IS NORMAL TESTED, NO GROSS MOTOR DEFICIT Course Vital Signs Vital signs: Vital Signs Temperature 36.9 C 07/31/24 16:26 Pulse Rate 92 07/31/24 16:26 Respiratory Rate 18 07/31/24 16:26 Blood Pressure 134/92 H 07/31/24 16:26 Pulse Oximetry 96 07/31/24 16:26 Oxygen Delivery Room Air 07/31/24 16:26 Temperature 36.9 C 07/31/24 16:26 Pulse Rate 92 07/31/24 16:26 Respiratory Rate 18 07/31/24 16:26 Blood Pressure 134/92 H 07/31/24 16:26 Pulse Oximetry 96 07/31/24 16:26 Oxygen Delivery Room Air 07/31/24 16:26 MDM - URI/Sore Throat MDM Narrative Medical decision making narrative: PATIENT PRESENTS WITH UPPER RESPIRATORY VIRAL INFECTION LIKE SYMPTOMS VITAL SIGNS ARE STABLE PHYSICAL EXAMINATION SHOWING FABIAN PHARYNGEAL ERYTHEMA DIFFERENTIAL DIAGNOSIS AND STREP THROAT, UPPER RESPIRATORY VIRAL INFECTION PATIENT TESTED POSITIVE FOR COVID DISCHARGED ON PACSLOVID Differential Diagnosis Differential diagnosis: Likely other ( ABOVE) Lab Data Attestation: I reviewed the patient's lab results. Labs: Lab Results 07/31/24 07/31/24 Range/Units 16:34 16:35 Influenza A (RT-PCR) Negative (Negative) Influenza B (RT-PCR) Negative (Negative) RSV (RT-PCR) Negative (Negative) SARS-CoV-2 RNA (RT-PCR) Positive A (Negative) Group A Strep (PCR) Not detected (Negative) Critical Care Time Critical Care Time Critical Care Time: No Discharge Plan Discharge Clinical Impression: COVID-19 Patient Disposition: Home, Self-Care Condition: Stable Instructions: COVID-19 (Coronavirus Disease 2019) (ED) Additional Instructions: RETURN IF SYMPTOMS ARE WORSENING , CALL YOUR FAMILY PHYSICIAN FOR APPOINTMENT, TAKE TYLENOL NEEDED FOR ACHES AND PAIN, CONTINUE HOME MEDICATIONS. Patient Language: Montserratian Prescriptions: New Paxlovid 150-100 mg tablets,dose pack 1 tablet PO BID 5 Days Qty: 10 0RF Rx Instructions: 1 tablet twice a day; No Action citalopram 10 mg tablet 10 mg PO DAILY montelukast 10 mg tablet 10 mg PO DAILY aripiprazole 2 mg tablet 2 mg PO DAILY ketorolac 10 mg tablet 10 mg PO Q6H PRN (Reason: pain) Qty: 15 0RF Rx Instructions: maximum total duration of 5 days from all oral, intranasal, or parenteral formulations Follow-up/Referrals: Seth Gupta MD [Primary Care Provider] - Stand Alone Forms: Work/School Release IP
[2024-07-31 17:12] LABS: Strep Group A RT-PCR NOT DETECTED (Negative)
[2024-07-31 17:23] LABS: SARS-CoV-2 RNA PCR Positive (Negative)
[2024-07-31 17:24] LABS: Influenza A QL RT-PCR Negative (Negative); Influenza B QL RT-PCR Negative (Negative); RSV RNA, RT-PCR Negative (Negative)
[2024-07-31 17:56] VITALS: BP 116/79; PULSE 91; RESP 18; TEMP 36.9; O2SAT 97
== END 2024-07-31 17:57 | disposition home or self-care (01) ==
PROVIDERS: Emergency Provider Emergency Medicine; PCP Internal Medicine
DX: U07.1 COVID-19 (principal); F17.200 Nicotine dependence, unspecified, uncomplicated
CPT/HCPCS: 87637; 87651; 99283

== ENCOUNTER 2024-09-13 20:59 | Emergency (ER) | payer BC, SELFPAY ==
--- OUTSIDE RECORDS SUMMARY | 2024-09-13 21:01 | XMS_ITS | Clinical Summary ---
Author Organization [facility] Address [address] [place] [address] Care Team Providers Care Guardian Family Member Name Role Phone Seth Gupta MD Primary Care Provider [phone] Allergies Active Allergy Reactions Criticality Noted Date Comments Penicillins Swelling 07/14/2022 Medications escitalopram (LEXAPRO) 20 MG tablet 2 Active montelukast (SINGULAIR) 10 MG tablet 4 Active nirmatrelvir & ritonavir 300/100 (PAXLOVID) 20 x 150 MG & 10 x 100MG tablet pack Take 3 tablets by mouth 2 (two) times daily. Take TWO nirmatrelvir 150 mg tablet(s) along with ONE ritonavir 100 mg tablet, with all three tablets taken together, twice daily for 5 days. May take with or without food. Swallow tablets whole. Do not chew, break or crush.. 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 Gender Identity Not on file Sexual Orientation Not on file Last Filed Vital Signs Vital Sign Reading Time Taken Comments Blood Pressure 145/91 02/08/2024 8:38 PM CDT Pulse 104 02/08/2024 8:38 PM CDT Temperature 38 C (100.4 F) 02/08/2024 8:38 PM CDT Respiratory Rate 20 02/08/2024 8:38 PM CDT Oxygen Saturation 96% 02/08/2024 9:30 PM CDT Inhaled Oxygen Concentration - - Weight 97.5 kg (215 lb) 02/08/2024 8:38 PM CDT Height 185.4 cm (6' 1 ) 02/08/2024 8:38 PM CDT Body Mass Index 28.37 02/08/2024 8:38 PM CDT Plan of Treatment Health Maintenance Due Date Last Done Comments Annual Physical 1989 Pneumococcal Vaccine: Pediatrics (0 to 5 Years) and At-Risk Patients (6 to 64 Years) (1 of 2 - PCV) 1992 Hepatitis C 2004 COVID-19 Vaccine ( season) 2024 08/10/2021, 03/04/2021, 02/09/2021 Influenza Adult (#1) 2024 DTaP, Tdap and Td Vaccines (7 - Td or Tdap) 01/23/2031 01/23/2021, 02/22/1992, 02/05/1988, Additional history exists Hepatitis B Vaccines Completed 11/29/1996, 06/28/1996, 05/31/1996 HPV Vaccines Aged Out No longer eligi ble based on patient's age to complete this topic Meningococcal B Vaccine Aged Out No l onger eligible based on patient's age to complete this topic Meningococcal Vaccine Aged Out No michael sincere eligible based on patient's age to complete this topic RSV Immunizations Under 20 Months Aged Out No longer eligible based on patient's age to complete this topic Insurance [facility] Care Teams Guardian Family Member Relationship Specialty Start Date End Date Seth Gupta MD [address] [place] [id number] PCP - General INTERNAL MEDICINE 07/14/22
[2024-09-13 21:02] VITALS: BP 138/102; PULSE 82; RESP 20; TEMP 36.4; O2SAT 100
--- NOTE | 2024-09-13 23:34 | ED.DENTAL ---
HPI - Dental/Oral General Chief complaint: Dental/Oral Stated complaint: oral surgery pain Time Seen by Provider: 09/13/24 23:30 History of Present Illness HPI Narrative: 39-year-old male presents emergency department for right lower dental pain. Patient had a tooth extracted today and has been having pain since. He was given paper scripts by his dentist, check them to the pharmacy but unfortunately was told by the pharmacist that they will not have the prescriptions ready until tomorrow. Patient states he is in pain and just needs something to take the edge off of his dental pain. He denies difficulty breathing or swallowing, fever. Related Data Home Medications ?Medication ?Instructions ?Recorded ?Confirmed ?Last Taken ?Type citalopram 10 mg tablet 10 mg PO DAILY 01/23/21 02/12/24 09/22/23 History montelukast 10 mg tablet 10 mg PO DAILY 10/17/22 02/12/24 09/22/23 History aripiprazole 2 mg tablet 2 mg PO DAILY 02/12/24 02/12/24 Unknown History Allergies Allergy/AdvReac Type Severity Reaction Status Date / Time amoxicillin Allergy Mild Swelling Verified 09/13/24 21:02 Penicillins Allergy Unknown Unknown Verified 09/13/24 21:02 Review of Systems Review of Systems: All systems reviewed & are unremarkable except as noted in HPI and below PMFSH Past Medical History Medical History Anxiety Family History Family History Father Depression Anxiety Mother Anxiety Depression Social History Social History Smoking status: Current every day smoker Alcohol intake: current Substance use: never Substance use type: former substance user Exam Narrative: GENERAL: Well-appearing, well-nourished, and in no acute distress. HEAD: Normocephalic, atraumatic. EYES: EOMI. ENT: Nares clear, no rhinorrhea or epistaxis. Mucous membranes moist. Hole in place of tooth #38 with mild dried blood and edema to surrounding gum line, no periapical abscess or drainage, purulence. No airway compromise. Patient tolerate secretions. No trismus. NECK: Supple. CHEST: Clear to auscultation. No respiratory distress. HEART: Regular rate and rhythm. No murmur heard. Normal peripheral pulses. EXTREMITIES: Normal range of motion. No edema. SKIN: Warm, dry, no rash. NEURO: No focal deficits. Alert and oriented x3 Course Vital Signs Vital signs: Vital Signs Temperature 97.5 F L 09/13/24 21:02 Pulse Rate 82 09/13/24 21:02 Respiratory Rate 20 09/13/24 21:02 Blood Pressure 138/102 H 09/13/24 21:02 Pulse Oximetry 100 09/13/24 21:02 Oxygen Delivery Room Air 09/13/24 21:02 Temperature 97.5 F L 09/13/24 21:02 Pulse Rate 82 09/13/24 21:02 Respiratory Rate 20 09/13/24 21:02 Blood Pressure 138/102 H 09/13/24 21:02 Pulse Oximetry 100 09/13/24 21:02 Oxygen Delivery Room Air 09/13/24 21:02 MDM - Dental/Oral MDM Narrative Medical decision making narrative: 39-year-old male presents emergency department for right dental pain after having a tooth extracted today. Patient was given paper scripts from his dentist unfortunately the pharmacy cannot have the prescriptions ready until tomorrow. He is requesting something for pain until he can get his scripts tomorrow. Vitals with elevated blood pressure otherwise unremarkable. Patient is afebrile and nontoxic appearing. Exam is significant for the above. He has no trismus, no airway compromise, he is tolerating his secretions. No evidence of deep space infection. Patient was given [place] in the ED advised to flower buncher or picker his scripts at the pharmacy and follow-up with his dentist. Return precautions discussed. He is agreeable with the plan verbalized understanding. Discharged in stable condition Discharge Plan Discharge Clinical Impression: Pain, dental Patient Disposition: Home, Self-Care Condition: Stable Instructions: Antibiotic Form, Toothache (ED) Additional Instructions: Your evaluated in the emergency department for dental pain after a tooth extraction. You were given a pain medication. Please to flower buncher or picker the pain medications that were prescribed by her dentist at the pharmacy tomorrow. Follow up with her dentist. Return to the emergency department if you develop a fever, your unable to tolerate food or fluids, you develop difficulty breathing, or other concerning symptoms. Patient Language: Monegasque Prescriptions: No Action citalopram 10 mg tablet 10 mg PO DAILY montelukast 10 mg tablet 10 mg PO DAILY aripiprazole 2 mg tablet 2 mg PO DAILY ketorolac 10 mg tablet 10 mg PO Q6H PRN (Reason: pain) Qty: 15 0RF Rx Instructions: maximum total duration of 5 days from all oral, intranasal, or parenteral formulations Paxlovid 150-100 mg tablets,dose pack 1 tablet PO BID 5 Days Qty: 10 0RF Rx Instructions: 1 tablet twice a day; Follow-up/Referrals: Seth Gupta MD [Primary Care Provider] - Stand Alone Forms: Work/School Release IP
[2024-09-13] MEDS: HYDROcodone/acetaminophen (*CRX) 5-325 MG TABLET 1 TAB PO (23:39)
--- OUTSIDE RECORDS SUMMARY | 2024-09-13 23:39 | XMS_ITS | Clinical Summary ---
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
== END 2024-09-13 23:42 | disposition home or self-care (01) ==
LOC: ANHED 23:37
PROVIDERS: Emergency Provider Physician Assistant; PCP Internal Medicine
DX: K08.89 Other specified disorders of teeth and supporting structures (principal); F17.210 Nicotine dependence, cigarettes, uncomplicated; F41.9 Anxiety disorder, unspecified
CPT/HCPCS: 99283; A9270